=== PATIENT | female | born 1950 | race Caucasian/White ===

== ENCOUNTER 2018-03-13 09:54 | Emergency (ER) | payer MEDICARE ==
[2018-03-13] MEDS ORDERED: NS 0.9% 1000 ML* 1,000 ML IV ONE (10:22)
[2018-03-13] MEDS ORDERED: diPHENhydraMINE IV* 50 MG/ML 1 ml VIAL (BENADRYL) IV ONE (10:22)
[2018-03-13] MEDS ORDERED: Meclizine TAB* 12.5 MG PO ONE (10:22)
[2018-03-13 12:06] LABS: ABS Basophils 0 10^3/ul (0-0.2); ABS Eosinophils 0 10^3/ul (0-0.6); ABS Monocytes 0.3 10^3/ul (0-0.8); ABS Neutrophils 9.8 10^3/ul (1.5-7.7); ABS Nucleated RBC 0 10^3/ul; Eosinophil % 0.1 % (0-6); Hematocrit 48 % (35-47); Hemoglobin 15.9 g/dl (12.0-16.0); Lymphocyte % 8.9 % (25-47); Mean Corpuscular HGB Conc 34 g/dl (31-36); Mean Corpuscular Hemoglobin 31 pg (27-31); Mean Corpuscular Volume 92 fL (80-97); Mean Platelet Volume 9.7 um3 (7.4-10.4); Nucleated Red Blood Cells % 0; Platelet Count 295 10^3/ul (150-450); Red Blood Count 5.14 10^6/ul (4.0-5.4); Red Cell Distribution Width 13 % (10.5-15); White Blood Count 11.1 10^3/ul (3.5-10.8)
[2018-03-13 12:34] LABS: EGFR Non-African American 77.3 (>60)
[2018-03-13 12:39] LABS: Urine Appearance Clear; Urine Blood Negative (Negative); Urine Color Colorless; Urine Ketones Negative (Negative); Urine Protein Negative (Negative); Urine Specific Gravity 1.001 (1.010-1.030); Urine Urobilinogen Negative (Negative)
[2018-03-13 13:02] VITALS: BP 137/81
--- NOTE | 2018-03-13 13:06 | ED ---
Dom Barth Stephanie, scribed for Leo Ronquillo MD on 03/13/18 at 1028 . Dizziness - HPI Summary HPI Summary: The pt is a 67 y/o F presenting to the ED with c/o dizziness that began at 02: 00 today. Her dizziness is described as room-spinning dizziness. Symptoms include nausea/vomiting. She denies CARL, numbness, weakness, vision changes and tinnitus. Alleviating factors include keeping her head still. - History Of Current Complaint Chief Complaint: EDDizziness Stated Complaint: NAUSEA Time Seen by Provider: 03/13/18 10:10 Hx Obtained From: Patient Onset/Duration: Suddenly Timing: Intermittent Episode Lasting Severity Currently: Severe Character: Head Spinning, Dizzy Aggravating Factor(s): Position Change, Change In Head Position Alleviating Factor(s): Lying Down Associated Signs And Symptoms: Positive: Negative - CARL, numbness, weakness, vision changes and tinnitus, Nausea, Vomiting - Allergies/Home Medications Allergies/Adverse Reactions: Allergies Allergy/AdvReac Type Severity Reaction Status Date / Time No Known Allergies Allergy Verified 03/13/18 09:59 Home Medications: Home Medications Levothyroxine TAB* [Synthroid 125 MCG TAB*] 125 mcg PO DAILY 03/13/18 [History Confirmed 03/13/18] Simvastatin TAB(NF) [Zocor 10 MG (NF)] 10 mg PO DAILY 03/13/18 [History Confirmed 03/13/18] PMH/Surg Hx/FS Hx/Imm Hx Sensory History: Denies: Hx Legally Blind EENT History: Denies: Hx Deafness - Surgical History Surgery Procedure, Year, and Place: NONE Infectious Disease History: No Infectious Disease History: Denies: Traveled Outside the [place] in Last 30 Days - Family History Known Family History: Negative: Renal Disease - Social History Occupation: Works From/At Home Lives: With Family Alcohol Use: Rare Hx Substance Use: No Substance Use Type: Reports: None Hx Tobacco Use: No Smoking Status (MU): Never Smoked Tobacco Have You Smoked in the Last Year: No Review of Systems Negative: Fever Negative: Blurred Vision ENT: Negative - tinnitus Positive: Vomiting, Nausea Neurological: Other - dizziness Negative: Headache, Weakness, Numbness All Other Systems Reviewed And Are Negative: Yes Physical Exam - Summary Physical Exam Summary: Appearance: Well appearing, no pain distress Skin: warm, dry, reflects adequate perfusion Head/face: normal Eyes: EOMI, AVI ENT: normal Neck: supple, non-tender Respiratory: CTA, breath sounds present Cardiovascular: RRR, pulses symmetrical Abdomen: non-tender, soft Bowel Sounds: present Musculoskeletal: normal, strength/ROM intact Neuro: sensory motor intact, A&Ox3, positive Hallpike-dilia to the R with nystagmus Triage Information Reviewed: Yes Vital Signs On Initial Exam: Initial Vitals Temp Pulse Resp BP Pulse Ox 98.3 F 80 20 164/78 100 03/13/18 09:55 03/13/18 09:55 03/13/18 09:55 03/13/18 09:55 03/13/18 09:55 Vital Signs Reviewed: Yes Diagnostics - Vital Signs Vital Signs Temp Pulse Resp BP Pulse Ox 03/13/18 09:55 98.3 F 80 20 164/78 100 - Laboratory Lab Results: Lab Results 03/13/18 03/13/18 03/13/18 Range/Units 11:45 11:45 11:45 WBC 11.1 H (3.5-10.8) 10^3/ul RBC 5.14 (4.0-5.4) 10^6/ul Hgb 15.9 (12.0-16.0) g/dl Hct 48 H (35-47) % MCV 92 (80-97) fL MCH 31 (27-31) pg MCHC 34 (31-36) g/dl RDW 13 (10.5-15) % Plt Count 295 (150-450) 10^3/ul MPV 9.7 (7.4-10.4) um3 Neut % (Auto) 87.9 H (38-83) % Lymph % (Auto) 8.9 L (25-47) % Giles % (Auto) 2.8 (0-7) % Eos % (Auto) 0.1 (0-6) % Baso % (Auto) 0.3 (0-2) % Absolute Neuts (auto) 9.8 H (1.5-7.7) 10^3/ul Absolute Lymphs (auto) 1.0 (1.0-4.8) 10^3/ul Absolute Monos (auto) 0.3 (0-0.8) 10^3/ul Absolute Eos (auto) 0 (0-0.6) 10^3/ul Absolute Basos (auto) 0 (0-0.2) 10^3/ul Absolute Nucleated RBC 0 10^3/ul Nucleated RBC % 0 Sodium 139 (139-145) mmol/L Potassium 3.5 (3.5-5.0) mmol/L Chloride 104 (101-111) mmol/L Carbon Dioxide 26 (22-32) mmol/L Anion Gap 9 (2-11) mmol/L BUN 13 (6-24) mg/dL Creatinine 0.75 (0.51-0.95) mg/dL Est GFR ( Amer) 99.4 (>60) Est GFR (Non-Af Amer) 77.3 (>60) BUN/Creatinine Ratio 17.3 (8-20) Glucose 116 H (70-100) mg/dL Calcium 9.8 (8.6-10.3) mg/dL Urine Color Colorless Urine Appearance Clear Urine pH 8.0 (5-9) Ur Specific [place] 1.001 L (1.010-1.030) Urine Protein Negative (Negative) Urine Ketones Negative (Negative) Urine Blood Negative (Negative) Urine Nitrate Negative (Negative) Urine Bilirubin Negative (Negative) Urine Urobilinogen Negative (Negative) Ur Leukocyte Esterase Negative (Negative) Urine Glucose Negative (Negative) Result Diagrams: 18 11:45 03/13/18 11:45 Lab Statement: Any lab studies that have been ordered have been reviewed, and results considered in the medical decision making process. Re-Evaluation - Re-Evaluation First Eval Re-Evaluation Time: 11:24 Change: Unchanged - The pt states her symptoms have not improved. Second Eval Re-Evaluation Time: 12:11 Change: Improved - The pt states her symtpoms have resolved. Dizzy Course/Dx - Course Course Of Treatment: Patient with rotational dizziness worsened by head movement. Hallpike is positive to the right side. Patient taught Melchor maneuvers. She was hydrated, treated with Benadryl and given oral meclizine with significant relief. She was up and moving about the ER without imbalance or dizziness. She was discharged in good condition to perform home Melchor as needed and to follow-up with her primary care physician. - Diagnoses Differential Diagnosis/HQI/PQRI: Benign Paroxysmal Positional Vertigo, Labyrinthitis, Meniere's Disease Provider Diagnoses: Positional vertigo of right ear Discharge - Sign-Out/Discharge Documenting (check all that apply): Discharge/Admit/Transfer - Discharge - Discharge Plan Condition: Stable Disposition: HOME Prescriptions: Meclizine TAB* [Antivert 12.5 TAB*] 25 - 50 mg PO TID PRN #30 tab PRN Reason: vertigo/dizziness Patient Education Materials: Benign Paroxysmal Positional Vertigo (ED) Referrals: Meghan Talavera MD [Primary Care Provider] - 3 Days Additional Instructions: Perform Melchor maneuvers as needed for vertigo. Call your doctor today to follow -up. Do not drive until you're well. Physical therapy can be prescribed if you have recurring symptoms despite home Melchor maneuvers. Return if worse, new symptoms or other concerns. - Billing Disposition and Condition Condition: STABLE Disposition: Home The documentation as recorded by the Dom ward Stephanie accurately reflects the service I personally performed and the decisions made by , Leo Ronquillo MD.
== END 2018-03-13 13:01 | disposition home or self-care (01) ==
LOC: ED 09:54
DX: H81.11 Benign paroxysmal vertigo, right ear (principal)
CPT/HCPCS: 36415; 80048; 81003; 85025; 96361; 96374; 99282; A9270-GY; J1200